=== PATIENT | female | born 1960 | race African-American/Black ===

== ENCOUNTER 2016-08-23 12:09 | Emergency (ER) | payer OTHER ==
[~2016-08-23] VITALS: Ht 177.8 cm; Wt 99.5 kg
[~2016-08-23 12:09] MED LIST: ADV25050 INH; ALBU18HF IH; AMLO-218 PO; ASPI-664 PO; AZIT250T6 PO; DIAZ-90 PO; DOCU-103 PO; ESCI20TA PO; GUAI-47 PO; HYD25 PO; INSU100C SC; MELA1TAB3 PO; MONT5TAB12 PO; MTF1000T PO; ONDA4TAB35 PO; OXYC-284 PO; PRED50TA PO; TRAZ50TA18 PO; UDROBDM PO; VALS320T11 PO
[2016-08-23 12:21] VITALS: Ht 177.8 cm; Wt 99.5 kg
--- NOTE | 2016-08-23 14:24 | ERA ---
ER Documentation Chief Complaint Date/Time DATE: 08/23/16 TIME: 14:22 Chief Complaint right lower abdominal pain x 3 days HPI The patient is a 55-year-old female, presenting to the ER because of intermittent right-sided abdominal pain from many weeks, was for the last 3 days , worse with movement. He denies fever, chills, neck pain, chest pain, dyspnea. She denied nausea, vomiting, dysuria, diarrhea, constipation. She smokes socially, denies drinking Past medical history: COPD, asthma, depression, hypertension, anxiety, diabetes mellitus Past surgical history: Hysterectomy, back, neck ROS All systems reviewed and are negative except as per history of present illness. Medications Home Meds Active Scripts Ibuprofen* (Motrin*) 600 Mg Tab, 600 MG PO Q6H Y for PAIN AND OR ELEVATED TEMP, #30 TAB Prov:ELIE CANO MD 08/23/16 Montelukast Sodium* (Singulair*) 5 Mg Tab.chew, 5 MG PO DAILY, #30 TAB Prov:MINDY AZAR MD 04/28/15 Metformin* (Glucophage*) 1,000 Mg Tablet, 1000 MG PO BID, #60 TAB Prov:MINDY AZAR MD 04/28/15 Ondansetron Hcl* (Zofran* ODT) 4 mg -ODT Tab.disper, 4 MG PO Q4H Y for NAUSEA AND OR VOMITING, #10 TAB Prov:AV HESTER DO 03/20/15 Salmeterol Xinaf/Fluticasone* (Advair*) 250-50 Diskus Inhaler, 1 INH INH BID, # 1 INH Prov:MARISSA NAM 03/23/14 Reported Medications Insulin Lispro (Humalog Kwikpen) 200 Unit/1 Ml Insuln.pen, 0 SQ AC MEALS, EA LIDING SCALE NO SCALE GIVEN 08/23/16 Carisoprodol* (Soma*) 350 Mg Tablet, 350 MG PO Q8H Y for MUSCLE SPASMS, TAB 08/23/16 Diphenhydramine Hcl* (Benadryl*) 50 Mg Cap, 50 MG PO Q6 Y for ITCHING, CAP 08/23/16 Zolpidem Tartrate* (Ambien*) 10 Mg Tablet, 10 MG PO QHS Y for INSOMNIA, TAB 08/23/16 Oxycodone Hcl-Acetaminophen* (Percocet*) 10-325 Mg Tablet, 1 TAB PO TID Y for PAIN, TAB 03/20/15 Diazepam* (Valium*) 5 Mg Tablet, 10 MG PO BID, TAB 06/03/14 Valsartan* (Diovan*) 320 Mg Tablet, 320 MG PO DAILY, TAB 05/13/14 Docusate Sodium (Docusil) 100 Mg Capsule, 100 MG PO BID 05/13/14 Hydrochlorothiazide* (Hydrochlorothiazide*) 25 Mg Tab, 25 MG PO DAILY, TAB 03/18/14 Aspirin* (Aspirin* EC) 81 Mg Tablet.dr, 81 MG PO DAILY, TAB 03/16/14 Amlodipine Besylate* (Norvasc*) 10 Mg Tablet, 10 MG PO DAILY, TAB 03/16/14 Escitalopram Oxalate* (Lexapro*) 20 Mg Tablet, 40 MG PO AM, TAB 11/07/13 Discontinued Reported Medications Insulin Lispro (Humalog) 100 U/Ml Cartridge, 10 UNITS SC TID W/ MEALS, EA 05/13/14 Melatonin-Pyridoxine Hcl (Melatonin) 5-1 Mg Tablet, 2 TAB PO HS, TAB 03/18/14 Trazodone Hcl* (Trazodone Hcl*) 50 Mg Tablet, 50 MG PO HS, TAB 03/16/14 Discontinued Scripts Azithromycin* (Azithromycin*) 250 Mg Tablet, 250 MG PO DAILY, #6 TAB Prov:MINDY AZAR MD 04/28/15 Guaifenesin-Dextromethorphan* (Robitussin* DM) 100MG/10MG/5ML Syrup, 10 ML PO Q4H Y for COUGH, #100 ML Prov:MINDY AZAR MD 04/28/15 Guaifenesin-Dextromethorphan* (Mucinex* DM) 600-30 Mg Tabsr, 1 TAB PO Q12, #20 TAB Prov:MINDY AZAR MD 04/28/15 Prednisone* (Prednisone*) 50 Mg Tablet, 40 MG PO BID, #10 TAB Prov:MINDY AZAR MD 04/28/15 Albuterol Sulfate* (Ventolin HFA*) 18 Gm Hfa.aer.ad, 2 PUFF IH Q4 Y for WHEEZING AND RESP DISTRESS, #1 INH 1 Refill Prov:CYRIL,BORNA 03/23/14 Allergies Allergies: Coded Allergies: Penicillins (Verified Allergy, Unknown, rash, 08/23/16) PMhx/Soc History of Surgery: No Anesthesia Reaction: Yes (1984) Hx Neurological Disorder: No Hx Respiratory Disorders: Yes (COPD,Asthma) Hx Cardiac Disorders: No Hx Psychiatric Problems: Yes (depression) Hx Miscellaneous Medical Probl: Yes (HTN,OA,COPD,DM,OBESITY,ANXIETY) Hx Alcohol Use: No Hx Substance Use: No Hx Tobacco Use: Yes (quit 2 mos ago) Physical Exam Vitals Vital Signs Date Time Temp Pulse Resp B/P Pulse Ox O2 Delivery O2 Flow Rate FiO2 08/23/16 16:52 73 38 171/85 93 Room Air 08/23/16 14:52 73 22 156/82 98 Room Air 08/23/16 12:21 97.9 83 18 143/66 98 Physical Exam Const: No acute distress. Head: Atraumatic. Eyes: Normal Conjunctiva. ENT: Normal External Ears, Nose and Mouth. Neck: Full range of motion. No meningismus. Resp: Clear to auscultation bilaterally. Cardio: Regular rate and rhythm. Abd: Soft, non distended, normal bowel sounds, mild to moderate right upper quadrant tenderness, mild lower quadrant tenderness, no rigidity, rebound , CVA tenderness Skin: No petechiae or rashes. Back: No midline or flank tenderness. Ext: No cyanosis, or edema. Neur: Awake and alert. No focal deficit Psych: Normal Mood and Affect. Result Diagram: 08/23/16 1506 08/23/16 1506 Results 24 hrs Laboratory Tests Test 08/23/16 15:06 08/23/16 17:15 White Blood Count 6.210^3/ul Red Blood Count 4.9510^6/ul Hemoglobin 13.9g/dl Hematocrit 42.5% Mean Corpuscular Volume 85.9fl Mean Corpuscular Hemoglobin 28.1pg Mean Corpuscular Hemoglobin Concent 32.7g/dl Red Cell Distribution Width 13.5% Platelet Count 43992^3/UL Mean Platelet Volume 11.4fl Neutrophils % 46.0% Lymphocytes % 45.8% Monocytes % 6.6% Eosinophils % 0.6% Basophils % 0.8% Nucleated Red Blood Cells % 0.0/100WBC Neutrophils # 2.910^3/ul Lymphocytes # 2.910^3/ul Monocytes # 0.410^3/ul Eosinophils # 0.010^3/ul Basophils # 0.110^3/ul Nucleated Red Blood Cells # 0.010^3/ul Sodium Level 144mmol/L Potassium Level 3.7mmol/L Chloride Level 106mmol/L Carbon Dioxide Level 27mmol/L Anion Gap 15 Blood Urea Nitrogen 12mg/dl Creatinine 0.97mg/dl Glucose Level 209mg/dl Calcium Level 10.6mg/dl Total Bilirubin 0.2mg/dl Direct Bilirubin 0.00mg/dl Indirect Bilirubin 0.2mg/dl Aspartate Amino Transf (AST/SGOT) 17IU/L Alanine Aminotransferase (ALT/SGPT) 21IU/L Alkaline Phosphatase 69IU/L Total Protein 8.5g/dl Albumin 4.5g/dl Globulin 4.00g/dl Albumin/Globulin Ratio 1.12 Lipase 29U/L Bedside Urine pH (LAB) 6.0 Bedside Urine Protein (LAB) Negative Bedside Urine Glucose (UA) Negative Bedside Urine Ketones (LAB) Negative Bedside Urine Blood Negative Bedside Urine Nitrite (LAB) Negative Bedside Urine Leukocyte Esterase (L Negative Current Medications Medications (Trade) Dose Ordered Sig/Vidhya Route PRN Reason Start Time Stop Time Status Last Admin Dose Admin Sodium Chloride (NS) 1,000 ml @ 1,000 mls/hr Q1H STAT IV 08/23/16 14:42 08/23/16 15:41 DC 08/23/16 15:10 Morphine Sulfate (morphine) 4 mg ONCE STAT IV 08/23/16 14:42 08/23/16 14:43 DC 08/23/16 15:09 Ondansetron HCl (Zofran Inj) 4 mg ONCE STAT IV 08/23/16 14:42 08/23/16 14:43 DC 08/23/16 15:09 Ketorolac Tromethamine (Toradol) 30 mg ONCE STAT IV 08/23/16 17:59 08/23/16 18:00 DC 08/23/16 18:01 Procedures/[place] [id number] Radiology Main Line: [phone] DIAGNOSTIC IMAGING REPORT Patient: BERRY KOENIG : 1960 Age: 55 Sex: F MR #: [id number] DOS: 08/23/16 0000 Ordering MD: ELIE CANO MD Location: E/R Room/Bed: PROCEDURE: Right upper quadrant abdominal ultrasound. CLINICAL INDICATION: Abdominal pain TECHNIQUE: Gibbs scale and color doppler ultrasound images of the right upper quadrant. COMPARISON: CT abdomen pelvis 08/23/2016 FINDINGS: Pancreas: Visualized portions appear of normal echogenicity, no focal lesions. Liver: Morphology: The right lobe of the liver is elongated measuring up to 17.4 cm which may reflect Brenton's lobe configuration. Echogenicity: Normal. Focal lesions: None. Main portal vein: Patent with hepatopetal flow. Biliary System: Normal appearing gallbladder wall. No gallstones seen. No intrahepatic biliary dilatation. Common bile duct measures 3.5 mm in maximal dimension. Kidneys: Right 12.4 cm in length. Right renal cortical thickness is preserved. Normal echogenicity. No hydronephrosis. No renal calculi. No focal lesions. No free fluid identified. IMPRESSION: Normal gallbladder without gallstones. Normal examination. RPTAT: AADD .Perez Aguillon MD, MD Date Time Electronically viewed and signed by .Perez Aguillon MD, MD on 08/23/2016 16:32 .B/ CC: ELIE CANO MD [place] [id number] Radiology Main Line: [phone] DIAGNOSTIC IMAGING REPORT Patient: BERRY KOENIG : 1960 Age: 55 Sex: F MR #: [id number] DOS: 08/23/16 1442 Ordering MD: ELIE CANO MD Location: E/R Room/Bed: PROCEDURE: CT abdomen and pelvis without contrast CLINICAL INDICATION: Abdominal pain TECHNIQUE: CT scan of the abdomen and pelvis was performed on volumetric multidetector CT scanner without contrast. Multiplanar coronal and axial reformatted images were obtained from the axial source images. CDTIvol = 18.6 mGy; DLP = 1019 mGy-cm. One or more of the following dose reduction techniques were used: Automated exposure control. Adjustment of the mA and/or kV according to patient size. Use of iterative reconstruction technique. COMPARISON: CT scan from 03/20/2015 FINDINGS: 11 mm nodule seen in the left lower lobe is stable from prior study, consistent with benignity. Minimal bronchial wall thickening is seen. The heart size is normal, without pericardial thickening or effusion. Liver: Normal. No hepatic lesions are identified. Gallbladder: Normal. Bile Ducts: No intra- or extrahepatic biliary dilatation. Spleen: Normal. Pancreas: Normal. No pancreatic ductal dilatation. Adrenals: Normal. Kidneys: Normal. No hydronephrosis. No renal masses or stones. Gastrointestinal: Moderate colonic stool is seen. Minimal fecalization of small bowel is seen. No bowel wall thickening or bowel dilatation. Peritoneum: No peritoneal masses. No ascites. A fat-containing umbilical hernia is seen. Bladder: Normal. Pelvic Structures: Normal. Lymph Nodes: No significantly enlarged lymph nodes by CT size criteria in the abdomen or pelvis. Vascular: No aneurysm is visualized. Atherosclerosis. Osseous: Scattered degenerative changes of the visualized spine is seen.No lytic or blastic lesions. IMPRESSION: No acute intra-abdominal or pelvic process. Scattered diverticulosis without diverticulitis. Moderate colonic stools with small bowel fecalization may suggest constipation/ hypomotility as a possible source of pain. Atherosclerosis. Minimal bronchial wall thickening may be sequela of bronchitis, asthma, or other nonspecific airway inflammation. RPTAT:PP .Bandar Moreno MD, Date Time Electronically viewed and signed by .Bandar Moreno MD, on 08/23/2016 16:37 .V/ CC: ELIE CANO MD MEDICAL MAKING DECISION: The patient is a 55-year-old female, presenting with acute abdominal pain of unclear etiology. She went to 1 L normal saline for clinical dehydration, morphine 4 mg IV and Toradol 30 IV for pain and Zofran formalin IV for nausea with good response The differential diagnoses considered include but are not limited to cholelithiasis, cholecystitis, cystitis, pancreatitis, hepatitis, gastritis, peptic ulcer disease, gastric ulcer, appendicitis, diverticulitis, cholangitis, choledocholithiasis, partial small bowel obstruction. Departure Diagnosis: Primary Impression: Abdominal pain Condition: Good Comments She was discharged with Motrin I discussed the findings with the patient. I advised the patient to follow-up with the primary physician in about 1-2 days, sooner if needed and return if any concern. ELIE CANO MD Aug 23, 2016 14:24
[2016-08-23] MEDS ORDERED: morphine 4 MG/ML VIAL IV STA (14:42)
[2016-08-23] MEDS ORDERED: ONDANSETRON 4 MG INJ IV STA (14:42)
[2016-08-23] MEDS ORDERED: SOD CHLORIDE 0.9% 1,000 ML IV STA (14:42)
[2016-08-23] MEDS ORDERED: BEN50 PO (14:47)
[2016-08-23] MEDS ORDERED: ZOLP10TA PO (14:47)
[2016-08-23] MEDS ORDERED: CARI350T PO (14:48)
[2016-08-23] MEDS ORDERED: INSU200I SQ (14:49)
[2016-08-23 15:12] LABS: ADD SCAN DIFF NO
[2016-08-23 15:14] LABS: BASOPHIL # 0.1 10^3/ul (0.0-0.1); BASOPHILS % 0.8 % (0.0-2.0); EOSINOPHILS % 0.6 % (0.0-7.0); HEMATOCRIT 42.5 % (37.0-47.0); HEMOGLOBIN 13.9 g/dl (12.0-16.0); LYMPHOCYTES # 2.9 10^3/ul (0.8-2.9); LYMPHOCYTES % 45.8 % (15.0-51.0); MEAN CORPUSCULAR HEMOGLOBIN 28.1 pg (29.0-33.0); MEAN CORPUSCULAR HGB CONC 32.7 g/dl (32.0-37.0); MEAN CORPUSCULAR VOLUME 85.9 fl (82.0-101.0); MEAN PLATELET VOLUME 11.4 fl (7.4-10.4); MONOCYTE # 0.4 10^3/ul (0.3-0.9); MONOCYTES % 6.6 % (0.0-11.0); NEUTROPHIL # 2.9 10^3/ul (1.6-7.5); PLATELET COUNT 203 10^3/UL (140-415); RED BLOOD COUNT 4.95 10^6/ul (4.20-5.40); RED CELL DISTRIBUTION WIDTH 13.5 % (11.5-14.5); WHITE BLOOD COUNT 6.2 10^3/ul (4.8-10.8)
[2016-08-23 15:42] LABS: ALBUMIN 4.5 g/dl (3.3-4.9); ALBUMIN/GLOBULIN RATIO 1.12; BILIRUBIN,INDIRECT 0.2 mg/dl (0-1.1); BILIRUBIN,TOTAL 0.2 mg/dl (0.2-1.3); CALCIUM 10.6 mg/dl (8.4-10.2); CREATININE 0.97 mg/dl (0.44-1.00); POTASSIUM 3.7 mmol/L (3.5-5.1); TOTAL PROTEIN 8.5 g/dl (6.1-8.1)
--- NOTE | 2016-08-23 16:33 | RADRPT ---
PROCEDURE: Right upper quadrant abdominal ultrasound. CLINICAL INDICATION: Abdominal pain TECHNIQUE: Gibbs scale and color doppler ultrasound images of the right upper quadrant. COMPARISON: CT abdomen pelvis 08/23/2016 FINDINGS: Pancreas: Visualized portions appear of normal echogenicity, no focal lesions. Liver: Morphology: The right lobe of the liver is elongated measuring up to 17.4 cm which may reflect Anuradha del's lobe configuration. Echogenicity: Normal. Focal lesions: None. Main portal vein: Patent with hepatopetal flow. Biliary System: Normal appearing gallbladder wall. No gallstones seen. No intrahepatic biliary dilatation. Common bile duct measures 3.5 mm in maximal dimension. Kidneys: Right 12.4 cm in length. Right renal cortical thickness is preserved. Normal echogenicity. No hydronephrosis. No renal calculi. No focal lesions. No free fluid identified. IMPRESSION: Normal gallbladder without gallstones. Normal examination. RPTAT: AADD .Perez Aguillon MD, MD Date Time Electronically viewed and signed by .Perez Aguillon MD, on 08/23/2016 16:32 .B/
--- NOTE | 2016-08-23 16:37 | RADRPT ---
PROCEDURE: CT abdomen and pelvis without contrast CLINICAL INDICATION: Abdominal pain TECHNIQUE: CT scan of the abdomen and pelvis was performed on volumetric multidetector CT scanner without contrast. Multiplanar coronal and axial reformatted images were obtained from the axial so urce images. CDTIvol = 18.6 mGy; DLP = 1019 mGy-cm. One or more of the following dose reduction techniques were used: Automated exposure control. Adjustment of the mA and/or kV according to patient size. Use of iterative reconstruction technique . COMPARISON: CT scan from 03/20/2015 FINDINGS: 11 mm nodule seen in the left lower lobe is stable from prior study, consistent with benignity. M inimal bronchial wall thickening is seen. The heart size is normal, without pericardial thickening or effusion. Liver: Normal. No hepatic lesions are identified. Gallbladder: Normal. Bile Ducts: No intra- or extrahepatic biliary dilatation. Spleen: Normal. Pancreas: Normal. No pancreatic ductal dilatation. Adrenals: Normal. Kidneys: Normal. No hydronephrosis. No renal masses or stones. Gastrointestinal: Moderate colonic stool is seen. Minimal fecalization of small bowel is seen. No bowel wall thickening or bowel dilatation. Peritoneum: No peritoneal masses. No ascites. A fat-containing umbilical hernia is seen. Bladder: Normal. Pelvic Structures: Normal. Lymph Nodes: No significantly enlarged lymph nodes by CT size criteria in the abdomen or pelvis. Vascular: No aneurysm is visualized. Atherosclerosis. Osseous: Scattered degenerative changes of the visualized spine is seen.No lytic or blastic lesions. IMPRESSION: No acute intra-abdominal or pelvic process. Scattered diverticulosis without diverticulitis. Moderate colonic stools with small bowel fecalization may suggest constipation/hypomotility as a pos sible source of pain. Atherosclerosis. Minimal bronchial wall thickening may be sequela of bronchitis, asthma, or other nonspecific airway inflammation. RPTAT:PP .Bandar Moreno MD, Date Time Electronically viewed and signed by .Bandar Moreno MD, MD on 08/23/2016 16:37 .V/
[2016-08-23 16:52] VITALS: BP 171/85; PULSE 73; RESP 38
[2016-08-23 17:12] LABS: URINE BLOOD (Dip) POC Negative (NEGATIVE)
[2016-08-23] MEDS ORDERED: IBUP-1542 PO (17:55)
[2016-08-23] MEDS ORDERED: KETOROLAC 30 MG INJ IV STA (17:59)
== END 2016-08-23 18:11 | disposition home or self-care (01) ==
LOC: E/R 12:09
DX: R10.31 Right lower quadrant pain (principal); J44.9 Chronic obstructive pulmonary disease, unspecified; I10 Essential (primary) hypertension; E11.9 Type 2 diabetes mellitus without complications; E66.9 Obesity, unspecified; Z68.31 Body mass index [BMI] 31.0-31.9, adult; Z79.4 Long term (current) use of insulin; Z87.891 Personal history of nicotine dependence; Z79.84 Long term (current) use of oral hypoglycemic drugs; Z79.82 Long term (current) use of aspirin
CPT/HCPCS: 74176; 76705; 80053; 81003; 83690; 85025; J1885; J2270; J2405; J7030; Z7610; 36415; 96374; 96375; A4310

== ENCOUNTER 2016-10-10 15:04 | Emergency (ER) | payer OTHER ==
[~2016-10-10] VITALS: Ht 182.9 cm; Wt 100.0 kg
[~2016-10-10 15:04] MED LIST changes: -ALBU18HF IH; -AZIT250T6 PO; +BEN50 PO; +CARI350T PO; -GUAI-47 PO; +IBUP-1542 PO; -INSU100C SC; +INSU200I SQ; -MELA1TAB3 PO; -PRED50TA PO; -TRAZ50TA18 PO; -UDROBDM PO; +ZOLP10TA PO
[2016-10-10 15:16] VITALS: Ht 182.9 cm; Wt 100.0 kg
[2016-10-10 15:57] LABS: BASOPHILS % 0.3 % (0.0-2.0); EOSINOPHILS % 0.6 % (0.0-7.0); HEMATOCRIT 44.4 % (37.0-47.0); HEMOGLOBIN 14.2 g/dl (12.0-16.0); LYMPHOCYTES # 2.9 10^3/ul (0.8-2.9); LYMPHOCYTES % 42.6 % (15.0-51.0); MEAN CORPUSCULAR HEMOGLOBIN 27.6 pg (29.0-33.0); MEAN CORPUSCULAR VOLUME 86.2 fl (82.0-101.0); MEAN PLATELET VOLUME 12.4 fl (7.4-10.4); MONOCYTE # 0.5 10^3/ul (0.3-0.9); MONOCYTES % 7.9 % (0.0-11.0); NEUTROPHIL # 3.3 10^3/ul (1.6-7.5); NEUTROPHILS % 48.3 % (39.0-77.0); PLATELET COUNT 187 10^3/UL (140-415); RED BLOOD COUNT 5.15 10^6/ul (4.20-5.40); RED CELL DISTRIBUTION WIDTH 14.2 % (11.5-14.5); WHITE BLOOD COUNT 6.8 10^3/ul (4.8-10.8)
[2016-10-10] MEDS ORDERED: LIDOCAINE 2% VISC 15 ML CUP PO ONE (16:00)
--- NOTE | 2016-10-10 16:08 | RADRPT ---
PROCEDURE: Soft tissue view of the neck CLINICAL INDICATION: Right neck pain TECHNIQUE: AP and lateral views of the neck was obtained. COMPARISON: None FINDINGS: The airway is patent. No radiopaque foreign body is seen. The epiglottis and aryepiglottic folds a re normal. The prevertebral soft tissues are normal. Degenerative spondylosis of the cervical spin e is seen. Anterior fusion at C6-7 is incompletely visualized. Vascular calcifications are seen. IMPRESSION: No radiographic evidence for acute pathology. RPTAT: HPNM Physician Lui Date Time Electronically viewed and signed by Physician Lui on 10/10/2016 16:08 /
[2016-10-10] MEDS ORDERED: MONT10TA24 PO (16:09)
[2016-10-10] MEDS ORDERED: ALPR1TAB7 PO (16:10)
[2016-10-10 16:12] LABS: INR 0.96; PROTIME 12.8 Sec (12.2-14.2)
[2016-10-10 16:13] LABS: PARTIAL THROMBOPLASTIN TIME 26.6 Sec (25.0-35.0)
[2016-10-10 16:14] LABS: ALANINE AMINOTRANSFERASE 24 IU/L (13-69); ALBUMIN 4.4 g/dl (3.3-4.9); ALBUMIN/GLOBULIN RATIO 0.95; ALKALINE PHOSPHATASE 88 IU/L (42-121); ANION GAP 18 (8-16); ASPARTATE AMINO TRANSFERASE 24 IU/L (15-46); BILIRUBIN,INDIRECT 0.2 mg/dl (0-1.1); BILIRUBIN,TOTAL 0.2 mg/dl (0.2-1.3); BLOOD UREA NITROGEN 10 mg/dl (7-20); CALCIUM 9.8 mg/dl (8.4-10.2); CARBON DIOXIDE 26 mmol/L (21-31); CHLORIDE 109 mmol/L (97-110); CREATININE 0.76 mg/dl (0.44-1.00); GLUCOSE 210 mg/dl (70-220); POTASSIUM 4.2 mmol/L (3.5-5.1); SODIUM 149 mmol/L (135-144)
[2016-10-10] MEDS ORDERED: morphine 4 MG/ML VIAL IV STA (16:20)
[2016-10-10 16:30] LABS: TROPONIN-I < 0.012 ng/ml (0.00-0.12)
[2016-10-10] MEDS ORDERED: LORAZEPAM 2 MG INJ IV ONE (17:00)
[2016-10-10] MEDS ORDERED: SOD CHLORIDE 0.9% 100 ML ONE (17:25)
[2016-10-10] MEDS ORDERED: IODIXANOL LOCM 100 ML BTL ONE (17:25)
[2016-10-10 17:50] VITALS: BP 177/103; PULSE 86; RESP 16
--- NOTE | 2016-10-10 18:06 | RADRPT ---
PROCEDURE: CT scan of the neck with contrast. CLINICAL INDICATION: Right neck pain. TECHNIQUE: A CT scan of the neck was performed with intravenous contrast. Coronal and sagittal re formats were generated. 100 cc of Visipaque 320 were administered during examination without complic ation. CTDIvol: 9.16 mGy. DLP: 229.70 mGy-cm. One or more of the following dose reduction techniques were used: - Automated exposure control. - Adjustment of the mA and/or kV according to patient size. - Use of iterative reconstruction technique. COMPARISON: None. FINDINGS: The aerodigestive tract is unremarkable. No periapical lucencies identified along the maxillary and mandibular teeth. No mass is identified in the suprahyoid and infrahyoid spaces of the neck. There is no cervical lymphadenopathy. The major salivary glands are unremarkable. No suspicious thyroid lesion is identified. There are mild to moderate bilateral carotid artery calcifications. The visualized intracranial structures are unremarkable. The visualized paranasal sinuses and masto id air cells are clear. The lung apices are also clear. The patient status post anterior cervical d iscectomy and fusion at C6-C7. IMPRESSION: 1. No cervical inflammation, mass, or lymphadenopathy. 2. No CT evidence of an odontogenic infection. 3. Status post anterior cervical discectomy and fusion at C6-C7. RPTAT: HTAR .Barber Vanessa MD, Date Time Electronically viewed and signed by .Barber Vanessa MD, on 10/10/2016 18:05 .R/
--- NOTE | 2016-10-10 18:14 | ERD ---
ER Documentation Chief Complaint Date/Time DATE: 10/10/16 TIME: 18:12 Chief Complaint RIGHT JAW/MANDIBLE PAIN SINCE YESTERDAY HPI This 56-year-old female presents to the ER for evaluation of mouth pain, jaw pain, and right-sided ear pain for 24 hours duration. She states that she did have a recent dentures placed. The patient denies any chest pain or shortness of breath associated with this and came to the ER today for evaluation. She denies any aggravating or relieving factors for her pain. ROS All systems reviewed and are negative except as per history of present illness. Medications Home Meds Active Scripts Metformin* (Glucophage*) 1,000 Mg Tablet, 1000 MG PO BID, #60 TAB Prov:MINDY AZAR MD 04/28/15 Salmeterol Xinaf/Fluticasone* (Advair*) 250-50 Diskus Inhaler, 1 INH INH BID, # 1 INH Prov:MARISSA NAM 03/23/14 Reported Medications Alprazolam* (Alprazolam*) 1 Mg Tablet, 1 MG PO TID, TAB 10/10/16 Montelukast Sodium* (Montelukast Sodium*) 10 Mg Tablet, 10 MG PO QHS, #30 TAB 10/10/16 Insulin Lispro (Humalog Kwikpen) 200 Unit/1 Ml Insuln.pen, 0 SQ AC MEALS, EA LIDING SCALE NO SCALE GIVEN 08/23/16 Carisoprodol* (Soma*) 350 Mg Tablet, 350 MG PO Q8H Y for MUSCLE SPASMS, TAB 08/23/16 Diphenhydramine Hcl* (Benadryl*) 50 Mg Cap, 50 MG PO Q6 Y for ITCHING, CAP 08/23/16 Zolpidem Tartrate* (Ambien*) 10 Mg Tablet, 10 MG PO QHS Y for INSOMNIA, TAB 08/23/16 Oxycodone Hcl-Acetaminophen* (Percocet*) 10-325 Mg Tablet, 1 TAB PO TID Y for PAIN, TAB 03/20/15 Valsartan* (Diovan*) 320 Mg Tablet, 320 MG PO DAILY, TAB 05/13/14 Docusate Sodium (Docusil) 100 Mg Capsule, 100 MG PO BID 05/13/14 Hydrochlorothiazide* (Hydrochlorothiazide*) 25 Mg Tab, 25 MG PO DAILY, TAB 03/18/14 Aspirin* (Aspirin* EC) 81 Mg Tablet.dr, 81 MG PO DAILY, TAB 03/16/14 Amlodipine Besylate* (Norvasc*) 10 Mg Tablet, 10 MG PO DAILY, TAB 03/16/14 Escitalopram Oxalate* (Lexapro*) 20 Mg Tablet, 40 MG PO AM, TAB 11/07/13 Discontinued Reported Medications Diazepam* (Valium*) 5 Mg Tablet, 10 MG PO BID, TAB 06/03/14 Discontinued Scripts Ibuprofen* (Motrin*) 600 Mg Tab, 600 MG PO Q6H Y for PAIN AND OR ELEVATED TEMP, #30 TAB Prov:ELIE CANO MD 08/23/16 Montelukast Sodium* (Singulair*) 5 Mg Tab.chew, 5 MG PO DAILY, #30 TAB Prov:MINDY AZAR MD 04/28/15 Ondansetron Hcl* (Zofran* ODT) 4 mg -ODT Tab.disper, 4 MG PO Q4H Y for NAUSEA AND OR VOMITING, #10 TAB Prov:AV HESTER DO 03/20/15 Allergies Allergies: Coded Allergies: Penicillins (Verified Allergy, Unknown, rash, 08/23/16) PMhx/Soc History of Surgery: Yes Anesthesia Reaction: Yes (1983) Hx Neurological Disorder: No Hx Respiratory Disorders: Yes (COPD,Asthma) Hx Cardiac Disorders: No Hx Psychiatric Problems: Yes (depression) Hx Miscellaneous Medical Probl: Yes (HTN,OA,COPD,DM,OBESITY,ANXIETY) Hx Alcohol Use: No Hx Substance Use: No Hx Tobacco Use: Yes (2 CIGS A DAY) Smoking Status: Current every day smoker Physical Exam Vitals Vital Signs Date Time Temp Pulse Resp B/P Pulse Ox O2 Delivery O2 Flow Rate FiO2 10/10/16 17:50 86 16 177/103 95 Room Air 10/10/16 15:16 98.1 81 196/126 99 Physical Exam INITIAL VITAL SIGNS: Reviewed by me GENERAL: The patient is well developed and appropriate for usual state of health in no apparent distress HEENT: Right tympanic membrane mildly erythematous pupils equal, round, and reactive to light. EOMI. There is no scleral icterus. NECK: C-spine is soft and supple, there is no meningismus. There is no cervical lymphadenopathy. LUNGS: Clear to auscultation bilaterally. There are no rales, wheezes or rhonchi. HEART: Regular rate and rhythm, no murmurs, clicks, rubs or gallops. ABDOMEN: Soft, non-tender, non-distended. There are bowel sounds in all four quadrants. No rebound or guarding. EXTREMITIES: There is no peripheral cyanosis or edema. No focal swelling or erythema. NEUROLOGICAL: The patient moves all four extremities with 5/5 strength. Cranial nerves II - XII are intact. Normal gait. Alert and oriented SKIN: There is no apparent rash or petechiae. HEME/LYMPHATIC: There is no evidence of excessive bruising or lymphedema. PSYCHIATRIC: The patient does have an anxious affect Result Diagram: 10/10/16 1540 10/10/16 1540 Results 24 hrs Laboratory Tests Test 10/10/16 15:40 White Blood Count 6.810^3/ul Red Blood Count 5.1510^6/ul Hemoglobin 14.2g/dl Hematocrit 44.4% Mean Corpuscular Volume 86.2fl Mean Corpuscular Hemoglobin 27.6pg Mean Corpuscular Hemoglobin Concent 32.0g/dl Red Cell Distribution Width 14.2% Platelet Count 37978^3/UL Mean Platelet Volume 12.4fl Neutrophils % 48.3% Lymphocytes % 42.6% Monocytes % 7.9% Eosinophils % 0.6% Basophils % 0.3% Nucleated Red Blood Cells % 0.0/100WBC Neutrophils # 3.310^3/ul Lymphocytes # 2.910^3/ul Monocytes # 0.510^3/ul Eosinophils # 0.010^3/ul Basophils # 0.010^3/ul Nucleated Red Blood Cells # 0.010^3/ul Prothrombin Time 12.8Sec Prothrombin Time Ratio 1.0 INR International Normalized Ratio 0.96 Activated Partial Thromboplast Time 26.6Sec Sodium Level 149mmol/L Potassium Level 4.2mmol/L Chloride Level 109mmol/L Carbon Dioxide Level 26mmol/L Anion Gap 18 Blood Urea Nitrogen 10mg/dl Creatinine 0.76mg/dl Glucose Level 210mg/dl Calcium Level 9.8mg/dl Total Bilirubin 0.2mg/dl Direct Bilirubin 0.00mg/dl Indirect Bilirubin 0.2mg/dl Aspartate Amino Transf (AST/SGOT) 24IU/L Alanine Aminotransferase (ALT/SGPT) 24IU/L Alkaline Phosphatase 88IU/L Troponin I < 0.012ng/ml Total Protein 9.0g/dl Albumin 4.4g/dl Globulin 4.60g/dl Albumin/Globulin Ratio 0.95 Lipase 18U/L Current Medications Medications (Trade) Dose Ordered Sig/Vidhya Route PRN Reason Start Time Stop Time Status Last Admin Dose Admin Lidocaine (Xylocaine (Viscous)) 15 ml ONCE ONCE PO 10/10/16 16:00 10/10/16 16:01 DC 10/10/16 15:44 Morphine Sulfate (morphine) 4 mg ONCE STAT IV 10/10/16 16:20 10/10/16 16:28 DC 10/10/16 16:32 Lorazepam (Ativan) 2 mg ONCE ONCE IV 10/10/16 17:00 10/10/16 17:01 DC 10/10/16 16:43 IV Flush 10 ml 10 ml STK-MED ONCE .ROUTE 10/10/16 17:25 10/10/16 17:26 DC 10/10/16 17:32 Sodium Chloride (NS) 100 ml @ ud STK-MED ONCE .ROUTE 10/10/16 17:25 10/10/16 17:26 DC 10/10/16 17:33 Iodixanol (Visipaque Locm) 100 ml STK-MED ONCE .ROUTE 10/10/16 17:25 10/10/16 17:26 DC 10/10/16 17:34 Procedures/MDM EKG: Rate/Rhythm: [Normal Sinus Rhythm] QRS, ST, T-waves: [No changes consistent w/ acute ischemia] Impression: [No evidence of ischemia or arrhythmia] X-ray Soft Tissue Neck 2V Interpreted by me: Bones: [No fracture] Joints: [No dislocation] Foreign body: [None] CT soft tissue neck: 1. No cervical inflammation, mass, or lymphadenopathy. 2. No CT evidence of an odontogenic infection. 3. Status post anterior cervical discectomy and fusion at C6-C7. This 56-year-old female presents to the ER for evaluation of jaw pain, mouth pain. I evaluate this patient and she did have minor erythema of the right tympanic membrane however she is complaining of severe pain. Lab work was obtained including an EKG which is nonischemic. The patient also underwent a CT of the soft tissue neck for evaluation of any mandibular abscess or infection of the palate or buccal mucosa. CT the soft tissue neck with contrast is within normal limits. The patient was given morphine and Ativan for her pain. The patient will be discharged home at this time with a prescription for amoxicillin and Logan for breakthrough pain. Prior to discharge as patient is on the phone and is requesting [employer] from a family friend Smoking Cessation Therapy: Pt. was lectured for greater than 3 minutes on the health risks of continued smoking and the benefits of cessation. Departure Diagnosis: Primary Impression: Mouth pain Additional Impressions: Chronic back pain Tobacco abuse Tobacco abuse counseling Condition: Stable LUCILLE MCMAHAN DO Oct 10, 2016 18:14
[2016-10-10] MEDS ORDERED: HYDR-906 PO (18:15)
[2016-10-10] MEDS ORDERED: CLIN-73 PO (18:15)
== END 2016-10-10 18:29 | disposition home or self-care (01) ==
LOC: E/R 15:04
DX: K13.79 Other lesions of oral mucosa (principal); M54.9 Dorsalgia, unspecified; F17.210 Nicotine dependence, cigarettes, uncomplicated; E11.9 Type 2 diabetes mellitus without complications; I10 Essential (primary) hypertension; J44.9 Chronic obstructive pulmonary disease, unspecified; E66.9 Obesity, unspecified; Z71.6 Tobacco abuse counseling; Z68.29 Body mass index [BMI] 29.0-29.9, adult; Z79.82 Long term (current) use of aspirin; Z79.4 Long term (current) use of insulin; Z79.84 Long term (current) use of oral hypoglycemic drugs
CPT/HCPCS: 36415; 70360; 70491; 80053; 83690; 84484; 85025; 85610; 85730; 93005; 96374; 96375; J2060; J2270; Q9967; Z7502; Z7610

== ENCOUNTER 2017-07-22 13:36 | Emergency (ER) | END 2017-07-22 16:45 | disposition home or self-care (01) ==